=== PATIENT | female | born 1950 | race Caucasian/White ===

== ENCOUNTER → 2019-03-08 | Outpatient (CLI) | payer MEDICARE, OTHER ==
[2019-03-08 16:49] LABS: Basophils % (A) 1 %; Eosinophils # (A) 0.4 k/uL (0-0.7); Eosinophils % (A) 5 %; HCT 44.4 % (34.0-46.0); HGB 14.4 gm/dL (11.4-16.0); Lymphocytes % (A) 30 %; MCH 31.2 pg (25.0-35.0); MCHC 32.6 g/dL (31.0-37.0); MCV 95.9 fL (80.0-100.0); Mean Platelet Volume 8.1; Monocytes # (A) 0.4 k/uL (0-1.0); Monocytes % (A) 6 %; Neutrophils # (A) 3.8 k/uL (1.3-7.7); Neutrophils % (A) 56 %; Platelet Count 268 k/uL (150-450); RBC 4.63 m/uL (3.80-5.40); RDW 14.4 % (11.5-15.5); WBC 6.8 k/uL (3.8-10.6)
== END ==
LOC: LABWHC1 15:43
PROVIDERS: ATTEND Dermatology Procedural Dermatology
DX: L40.0 Psoriasis vulgaris (principal)
CPT/HCPCS: 36415; 82565; 84450; 84460; 85025

== ENCOUNTER → 2019-10-13 | Outpatient (CLI) | payer MEDICARE, OTHER ==
[2019-10-13 11:36] LABS: Basophils % (A) 1 %; Eosinophils # (A) 0.1 k/uL (0-0.7); Eosinophils % (A) 2 %; HCT 45.6 % (34.0-46.0); HGB 15.5 gm/dL (11.4-16.0); Lymphocytes # (A) 2.3 k/uL (1.0-4.8); Lymphocytes % (A) 34 %; MCH 31.3 pg (25.0-35.0); MCV 92.1 fL (80.0-100.0); Mean Platelet Volume 7.3; Monocytes # (A) 0.3 k/uL (0-1.0); Monocytes % (A) 5 %; Neutrophils # (A) 3.8 k/uL (1.3-7.7); Neutrophils % (A) 57 %; Platelet Count 294 k/uL (150-450); RBC 4.95 m/uL (3.80-5.40); RDW 12.4 % (11.5-15.5); WBC 6.7 k/uL (3.8-10.6)
[2019-10-13 18:03] LABS: African American GFR (CKD) 88.4 (60.0-200.0); Non-African American GFR(CKD) 76.3 (60.0-200.0)
== END | disposition home or self-care (01) ==
LOC: LABWHC1 10:55
PROVIDERS: ATTEND Dermatology Procedural Dermatology
DX: L40.0 Psoriasis vulgaris (principal)
CPT/HCPCS: 36415; 82565; 84450; 84460; 85025

== ENCOUNTER → 2021-03-19 | Outpatient (CLI) | payer MEDICARE ==
[2021-03-19 19:33] LABS: Basophils # (A) 0.03 X 10*3/uL (0.00-0.10); Basophils % (A) 0.6 %; Eosinophils # (A) 0.15 X 10*3/uL (0.04-0.35); Eosinophils % (A) 2.9 %; HCT 47.7 % (37.2-46.3); HGB 15.5 g/dL (12.0-15.0); Lymphocytes # (A) 1.73 X 10*3/uL (0.90-5.00); MCH 30.8 pg (27.0-32.0); MCHC 32.5 g/dL (32.0-37.0); MCV 94.8 fL (80.0-97.0); Monocytes # (A) 0.51 X 10*3/uL (0.20-1.00); Monocytes % (A) 9.7 %; Neutrophils # (A) 2.82 X 10*3/uL (1.80-7.70); Neutrophils % (A) 53.6 %; Platelet Count 266 X 10*3/uL (140-440); RBC 5.03 X 10*6/uL (4.10-5.20); RDW 12.3 % (11.5-14.5); WBC 5.25 X 10*3/uL (4.50-10.00)
[2021-03-19 21:54] LABS: African American GFR (CKD) 87.2 (60.0-200.0); Non-African American GFR(CKD) 75.2 (60.0-200.0)
== END | disposition home or self-care (01) ==
LOC: LABWHC1 12:04
PROVIDERS: ATTEND Dermatology MOHS-Micrographic Surgery
DX: L40.0 Psoriasis vulgaris (principal)
CPT/HCPCS: 36415; 82565; 84450; 84460; 84520; 85025; 86480

== ENCOUNTER → 2021-07-06 | Outpatient (CLI) | payer MEDICARE ==
--- NOTE | 2021-07-09 06:23 | PE ---
EXAMINATION TYPE: PET CT fusion skull to thigh DATE OF EXAM: 07/06/2021 COMPARISON: Outside chest CT June 01, 2021 HISTORY: Solitary pulmonary nodule, abnormal CT TECHNIQUE: Following the intravenous administration of 10.25 mCi of F-18 FDG, whole body images are performed from the skull base to the midthigh. Images are reviewed on the computer in the coronal, a xial, and sagittal planes. Reconstructed rotating images are created on independent workstation and reviewed on the computer. A localization and attenuation correction CT is performed in conjunction with the PET scan. Blood glucose level was 108 SCAN: Initial Scan FINDINGS: SKULL BASE AND NECK: Mild symmetric uptake along the lower cervical paraspinal muscles could reflect inflammatory change. No suspicious hypermetabolic uptake. CHEST, MEDIASTINUM, AND HILAR REGION: Background mild to moderate underlying emphysematous changes re demonstrated. Persistent irregular shaped anterior right upper lobe lesion shows increased central fl uid measuring 2.9 x 2.3 cm current study axial image 81 is hypermetabolic, max SUV is 5.61 centrally. Some adjacent pleural thickening near axial image 78 is noted. Superior to this there is slightly mo re prominent 1.3 x 0.8 cm subpleural right upper lobe nodule axial image 71 that is hypermetabolic, m ax SUV is 4.35. Finally there is 1.5 x 1.3 cm hypermetabolic right hilar nodule or lymph node axial i mage 93, max SUV is 4.62. No additional areas of abnormal hypermetabolic uptake. No suspicious hypermetabolic mediastinal lymph nodes noted. ABDOMEN AND PELVIS: No adrenal masses. Normal excretion. Likely poorly distended bladder due to large mass occupying the pelvis extending into the lower to mid abdomen. This has more low dense component in the posterior pelvis. There is suggestion of some incomplete rim calcification inferiorly. Possib le area of abnormal hypermetabolic uptake just superior to pubic symphysis axial image 221 versus poo rly distended bladder or poorly distended bladder is present inferiorly axial image 230. Local mass e ffect noted. Normal uterus identified near axial image 222. No additional areas of abnormal hypermeta bolic uptake clearly identified. OSSEOUS STRUCTURES: No areas of abnormal hypermetabolic uptake. OTHER CT: Moderate to severe calcified plaque right carotid bulb. Moderate to severe three-vessel coronary artery calcification. Prominent pulmonary arteries suggestin g underlying pulmonary artery hypertension. Aneurysmal ascending aorta at 3.9 cm. Some cortical thinning in both kidneys. Metallic artifact from a hip arthroplasty causes streak artif act limiting evaluation of pelvic structures. IMPRESSION: 1. Hypermetabolic uptake in cavitary right upper lung lesion along with more prominent hypermetabolic peripheral right upper lung nodule and right hilar nodule or lymph node. Findings worrisome for neop lasm. Metastatic disease is in the differential. 2. Large pelvic mass with local mass effect presumed ovarian neoplasm, solid hypermetabolic component not excluded. Advise gynecology oncology referral.
== END | disposition home or self-care (01) ==
LOC: RADPETMAIN 09:26
PROVIDERS: ATTEND Internal Medicine
DX: R59.0 Localized enlarged lymph nodes (principal); R19.09 Other intra-abdominal and pelvic swelling, mass and lump; R91.1 Solitary pulmonary nodule
CPT/HCPCS: 78815; A9552

== ENCOUNTER → 2021-07-11 | Outpatient (CLI) | payer MEDICARE ==
[2021-07-11 20:50] LABS: Basophils # (A) 0.04 X 10*3/uL (0.00-0.10); Basophils % (A) 0.5 %; Eosinophils # (A) 0.21 X 10*3/uL (0.04-0.35); Eosinophils % (A) 2.6 %; HCT 48.3 % (37.2-46.3); HGB 15.7 g/dL (12.0-15.0); Lymphocytes # (A) 1.74 X 10*3/uL (0.90-5.00); Lymphocytes % (A) 21.9 %; MCH 30.5 pg (27.0-32.0); MCHC 32.5 g/dL (32.0-37.0); Mean Platelet Volume 12.8 fL (9.5-12.2); Monocytes # (A) 0.61 X 10*3/uL (0.20-1.00); Monocytes % (A) 7.7 %; Neutrophils # (A) 5.32 X 10*3/uL (1.80-7.70); Platelet Count 297 X 10*3/uL (140-440); RBC 5.14 X 10*6/uL (4.10-5.20); RDW 12.7 % (11.5-14.5); WBC 7.94 X 10*3/uL (4.50-10.00)
[2021-07-12 20:28] LABS: African American GFR (CKD) 87.2 (60.0-200.0); Albumin 4.2 g/dL (3.80-4.90); Albumin/Globulin Ratio 1.68 (1.60-3.17); Anion Gap 5.9 mmol/L (4.00-12.00); BUN/Creat Ratio 13.75 Ratio (12.00-20.00); Calcium 9.4 mg/dL (8.7-10.3); Carbon Dioxide 31.1 mmol/L (21.6-31.8); Globulin 2.5 g/dL (1.6-3.3); Non-African American GFR(CKD) 75.2 (60.0-200.0); Potassium 3.9 mmol/L (3.5-5.5); Total Bilirubin 0.9 mg/dL (0.2-1.2); Total Protein 6.7 g/dL (6.2-8.2)
[2021-07-12 21:04] LABS: Cancer Antigen 125 15.6 U/mL (0.0-30.1)
== END | disposition home or self-care (01) ==
LOC: LABWHC1 11:47
PROVIDERS: ATTEND Internal Medicine
DX: C56.9 Malignant neoplasm of unspecified ovary (principal); R19.00 Intra-abdominal and pelvic swelling, mass and lump, unspecified site
CPT/HCPCS: 36415; 80053; 85025; 86304

== ENCOUNTER → 2021-07-27 | Outpatient (CLI) | payer MEDICARE ==
--- NOTE | 2021-07-29 20:33 | CT ---
EXAMINATION TYPE: CT abdomen pelvis w con DATE OF EXAM: 07/27/2021 COMPARISON: PETCT 07/06/[address] chest 06/01/2021 HISTORY: 70-year-old female R19.09, Abdominal/pelvic mass. TECHNIQUE: Contiguous axial scanning of the abdomen and pelvis following administration of 100 ml Iso odalys 300 IV contrast. Delayed images through the kidneys and coronal/sagittal reconstructions perform ed. CT DLP: 860.30 mGycm Automated exposure control for dose reduction was used. FINDINGS: Heart normal size without pericardial effusion. Scattered coronary artery calcifications are present. Visualized lung bases are clear without pleural effusion. Tiny calcified granuloma right hepatic dome. Otherwise, no focal liver lesion or biliary ductal dilat ation. Portal venous system is patent. Gallbladder, right adrenal gland, kidneys, spleen, and pancreas within normal limits. 1.3 cm nodularity of the left adrenal gland remains unchanged, probable benign adrenal adenoma. Moderate atherosclerotic calcifications infrarenal abdominal aorta and iliac arteries with segmental moderate atherosclerotic narrowing within the bilateral common iliac arteries. Retroaortic left renal vein. No dilated small bowel or free air. No mesenteric or retroperitoneal lymphadenopathy. Mild stool burden. Uterus anteverted. There is neris pelvic floor relaxation with elongation of the inferior aspect of t he bladder. The body of the bladder is flattened anteriorly secondary to a large complex cystic mass probably of ovarian origin measuring up to 23.5 cm AP by 16.5 cm wide by 13.3 cm craniocaudal (sagitt al image 59 and axial image 51). At least one and probably more internal septations are present. There is mild adjacent free fluid along the left lateral margin, unchanged from the PET/CT of 07/06/20 21, axial image 56. On the lateral view, we note the uterine fundus to be rounded, superior to the flank segment. We susp ect that this corresponds to the area of increased hypermetabolism on the patient's PET/CT rather nneka n a solid metabolic component. Refer to sagittal image 53. No pelvic lymphadenopathy is clearly ident ified. Bones: Right hip total arthroplasty. Moderate to advanced degenerative disc disease mid to lower lumb ar spine with hypertrophic facet arthropathy. IMPRESSION: 1. REDEMONSTRATED LARGE CYSTIC MASS OF THE PELVIS MEASURING UP TO 23.5 X 16.5 X 13.3 CM CONTAINS AT L EAST ONE AND POSSIBLY MORE INTERNAL SEPTATIONS. FINDINGS LIKELY OF OVARIAN ORIGIN, PROBABLY SEROUS CY STADENOMA. SURGICAL EVALUATION IS RECOMMENDED. SOME MILD FLUID ADJACENT TO THE LEFT LATERAL MARGIN IS UNCHANGED FROM 07/06/2021. 2. THE SOLID METABOLIC COMPONENT QUESTIONED ON THE PATIENT'S PET/CT IS HIGHLY SUSPECTED TO CORRESPOND TO EXCRETED FDG THAT WAS TRAPPED IN THE FUNDUS OF THE BLADDER (RATHER THAN SUSPICIOUS SOLID METABOLI C TISSUE). THE BODY OF THE BLADDER IS FLATTENED FROM EXTRINSIC MASS EFFECT. THERE IS INFERIOR FUNNELI NG OF THE BASE OF THE BLADDER DUE TO PELVIC FLOOR RELAXATION. 3. STABLE 1.3 CM LEFT ADRENAL NODULE, LIKELY ADRENAL ADENOMA.
== END | disposition home or self-care (01) ==
LOC: RADCTMAIN 17:14
PROVIDERS: ATTEND Internal Medicine
DX: N94.89 Other specified conditions associated with female genital organs and menstrual cycle (principal)
CPT/HCPCS: 82565; 84520; 74177; 36415; Q9967

== ENCOUNTER 2021-09-20 10:37 | Day surgery (SDC) | payer MEDICARE ==
[2021-09-18 15:27] VITALS: BMI 28.3
[~2021-09-20 10:37] MED LIST: ALBUTEROL NEB (CONC) 2.5 MG/0.5 ML INHALATION ONE; LACTATED RINGERS 1,000 ML IV SCH; LIDOCAINE 1% (10MG/ML) FOR IV START INTRADERMA PRN; LIDOCAINE 2% (PF) 20 MG/ML 5 ML VIAL INHALATION ONE; LIDOCAINE VISCOUS 300 MG/15 ML CUP MUCOUS MEM ONE; SODIUM CHLORIDE 0.9% 1,000 ML IV SCH
--- NOTE | 2021-09-20 12:35 | CT ---
EXAMINATION TYPE: CT Chest janki Phan Protocol DATE OF EXAM: 09/20/2021 COMPARISON: 07/06/2021 HISTORY: Navigational brochoscopy CT DLP: 525 mGycm Automated exposure control for dose reduction was used. FINDINGS: Background mild to moderate underlying emphysematous changes redemonstrated. Persistent irregular sha ped anterior right upper lobe lesion shows increased central fluid measuring 2.9 x 2.3 cm current sta ble from prior exam. Pleural thickening stable.. Superior to this there is slightly more prominent 1.3 x 0.8 cm subpleural right upper lobe nodule is stable. Adenopathy previously described also again noted and appears more prominent in the right hilum measuring a short axis of 2.5 cm on today's exam. Multinodular thyroid changes noted..\ There is a healing anterior right-sided rib fracture. Tiny pericardial effusion with cardiomegaly and coronary artery calcification. Ascending aorta measur es a maximal dimension of 3.6 cm with atherosclerotic changes. Calcifications in the region of the pa ncreas appear vascular. Adrenal glands normal morphology. IMPRESSION: PRENAVIGATIONAL BRONCHOSCOPY IMAGING DEMONSTRATES PERSISTENT SUSPICIOUS APPEARING MASSES. FINDINGS PALMA SPICIOUS FOR MALIGNANCY.
[2021-09-20] MEDS ORDERED: LIDOCAINE 1% INJ 10MG/ML (20 ML MDV) ONE (13:24)
[2021-09-20] MEDS ORDERED: ePHEDrine 50 MG/ML 1 ML AMP ONE (13:24)
[2021-09-20] MEDS ORDERED: ROCURONIUM 10 MG/ML (5 ML VIAL) IV ONE (13:24)
[2021-09-20] MEDS ORDERED: MIDAZOLAM 2 MG/2 ML VIAL ONE (13:24)
[2021-09-20] MEDS ORDERED: NEOSTIGMINE 1 MG/ML 10 ML VIAL ONE (13:24)
[2021-09-20] MEDS ORDERED: GLYCOPYRROLATE 0.2 MG/ML 2 ML VIAL ONE (13:24)
[2021-09-20] MEDS ORDERED: fentaNYL (PF) 50 MCG/ML 2 ML AMP ONE (13:24)
[2021-09-20] MEDS ORDERED: SUCCINYLCHOLINE CHLORIDE 100 MG/5 ML SYR IV ONE (13:24)
[2021-09-20] MEDS ORDERED: PROPOFOL 10 MG/ML 20 ML VIAL IV ONE (13:24)
[2021-09-20] MEDS ORDERED: SODIUM CHLORIDE 0.9% 500 ML 500 ML IV ONE (14:20)
--- NOTE | 2021-09-20 14:29 | P.PCN ---
Date of Procedure: 09/20/21 Preoperative Diagnosis: - RUL mass - Mediastinal lymphadenopathy, right hilar Postoperative Diagnosis: - RUL mass - Mediastinal lymphadenopathy, right hilar Procedure(s) Performed: 1 flexible bronchoscopy 2 Navigational bronchoscopy 3 transbronchial biopsy of right upper lobe mass, with navigational guidance 4 EBUS evaluation of the mediastinal lymph nodes 5 transbronchial needle aspirate of right hilar, patient 11RS lymph node, under EBUS guidance Anesthesia: DANIELA Surgeon: Vanessa Rodgers Estimated Blood Loss (ml): 0 Pathology: other Condition: stable Disposition: same day Operative Findings: This is a navigational bronchoscopy along with endobronchial ultrasound of the right hilar mass and mediastinal lymph node. The procedure was done in the endoscopy suite. The patient underwent a CAT scan of the chest using the [facility] protocol. The CT images were reviewed. The right upper lobe mass was identified. Right hilar lymph node was also identified. Appropriate mapping of the mass was done and following that the images uploaded into the [employer] navigational tower. The patient was brought in to the endoscopy suite and the patient was intubated the usual fashion by #8 orotracheal tube. Intubation process was done by anesth esia the bedside. After adequate sedation, the flexible bronchoscope was introduced through the orotracheal tube and an airway inspection was done. Visualized airways included the distal trachea, bilateral mainstem bronchi, right upper lobe bronchus regular lobe right lower lobe bronchus along with the radius segments on the right addition to left mainstem bronchus, left upper lobe bronchus and left lower lobe bronchus along with various segments on the left. On the bronchial tumors or lesions identified. There was some looseness for secretions that were suctioned out. Following that, the appropriate calibration was done using the main zayda and the secondary zayda on the left as a reference points. On the navigational guidance, the bronchoscope was moved to the right upper lobe and transbronchial biopsy of the right upper lobe mass was done and multiple passes was obtained. No bleeding was encountered samples were collected without any major difficulties or complications. Following that, the flexible bronchoscope was removed and the EBUS was introduced. The mediastinal lymph nodes were evaluated. The patient was found to have a 11 millimeters subcarinal lymph nodes, station 7, no lymph nodes were identified at station 4R and 10 hour. At the level of station 11 RS, a large lymph node was identified measuring 20 x 17 mm in size. Based on that, using EBUS guidance, transbronchial needle aspirate of the 11 R lymph node was done using a 22-gauge histology needle. A total of 5 passes were taken and the samples were saved for pathologic evaluation. Following that, the EBUS was removed and the flexible bronchoscope was introduced and therapeutic it was suctioning was done. No evidence of any bleeding. The bronchoscope was removed and the patient was transferred recovery in stable condition. No bedside complications or bleeding at a pressure underwent a successful procedure. Chest x-rays to follow. If all stable, the patient will be discharged home today.
[2021-09-20 14:36] VITALS: TEMP 97
--- NOTE | 2021-09-20 15:01 | XR ---
EXAMINATION TYPE: XR chest 1V DATE OF EXAM: 09/20/2021 COMPARISON: None INDICATION: Post procedure TECHNIQUE: Single frontal view of the chest is obtained. FINDINGS: The heart size is normal. The pulmonary vasculature is normal. There is an irregular right upper lobe infiltrate or density. No pneumothorax is evident. IMPRESSION: 1. No pneumothorax post bronchoscopy
[2021-09-20 15:05] VITALS: RESP 18
[2021-09-20 15:36] VITALS: BP 167/72; PULSE 77
== END 2021-09-20 15:46 | disposition home or self-care (01) ==
LOC: ORWHC2ENDO 10:37
PROVIDERS: ATTEND Internal Medicine Critical Care Medicine
DX: R91.8 Other nonspecific abnormal finding of lung field (principal); R59.0 Localized enlarged lymph nodes
CPT/HCPCS: 31627; 31645; 31654; 71045; 71250; 31628; 31629; 31652; J2250; J2710; J2001; J3010; J0330; J2704

== ENCOUNTER → 2021-10-10 | Outpatient (CLI) | payer MEDICARE ==
--- NOTE | 2021-10-11 04:39 | MR ---
EXAMINATION TYPE: MR brain wo/w con DATE OF EXAM: 10/10/2021 COMPARISON: None HISTORY: Lung Cancer, Suspected Mets CONTRAST: Standard multiplanar, multisequence MRI departmental protocol images were obtained without contrast a nd with 7 mL intravenous Gadavist gadolinium contrast. There is cerebral cortical atrophy. There is no mass effect. There is a 3 cm area of fluid signal in the left sylvian fissure that could relate to an old infarct with encephalomalacia. There is no mass effect. There is no midline shift. The contrast images show no pathologic enhancement. There is mahesh l enhancement of the venous sinuses. There are no ring-enhancing lesions. On the T2 and FLAIR images there is increased signal in the brain parenchyma adjacent to the left tem poral lobe lesion and consistent with infarct. There are fluid levels in the maxillary sinuses. There is no evidence of orbital mass. Corpus callosum is intact. The brainstem is intact. There is no evid ence of posterior fossa mass. 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 Th is is probably not changed compared to the PET CT scan of 07/06/2021. There are scattered small white matter high signal foci without enhancement consistent with some instructor weaving ming small vessel ischemia.
== END | disposition home or self-care (01) ==
LOC: RADMRIMAIN 09:46
PROVIDERS: ATTEND Internal Medicine Hematology & Oncology
DX: C34.11 Malignant neoplasm of upper lobe, right bronchus or lung (principal); G93.89 Other specified disorders of brain
CPT/HCPCS: 70553; A9585

== ENCOUNTER → 2022-02-11 | Outpatient (CLI) | payer MEDICARE ==
--- NOTE | 2022-02-11 12:59 | CT ---
EXAMINATION TYPE: CT ChestAbdPelvis w con DATE OF EXAM: 02/11/2022 COMPARISON: Prior PET/CT July 06, 2021 HISTORY: Right-sided Lung cancer status post chemotherapy and radiation treatment. CT DLP: 1409.3 mGycm. Automated Exposure Control for Dose Reduction was Utilized. CONTRAST: CT scan of the thorax, abdomen and pelvis is performed with IV Contrast, patient injected with 100ml mL of Isovue 300. FINDINGS: LUNGS: Bilateral mild to moderate underlying emphysematous change is redemonstrated. Marked improveme nt in the anterior partial cavitated right upper to mid lung spiculated nodule now measuring 1.5 x 1. 2 cm axial image 22 versus 2.9 x 2.3 cm. The superior peripheral 1.3 x 0.8 cm hypermetabolic nodule n ow shows elongated pleural thickening axial image 14. The right infrahilar lobe dense nodule with mil d hypermetabolic uptake is fairly stable measuring 1.2 cm axial image 30 versus prior. No new nodules bilaterally. No pleural effusion or pneumothorax seen. MEDIASTINUM: There are no new greater than 1 cm hilar or mediastinal lymph nodes. No cardiomegaly o r pericardial effusion is seen. Fairly severe coronary artery calcification redemonstrated. Stable e ctatic ascending aorta up to 3.7 cm. LIVER/GB: No significant abnormality is appreciated. PANCREAS: No significant abnormality is seen. SPLEEN: No significant abnormality is seen. ADRENALS: Stable ametabolic 8mm low dense left adrenal nodule axial image 59. KIDNEYS: Symmetric cortical uptake and excretion without hydronephrosis seen bilaterally. BOWEL: No significant abnormality is seen. GENITAL ORGANS: Persistent large hyperdense lesion in the lower abdomen measuring approximately 18 x 17 cm axial image 90 with local mass effect. Just below this in the pelvis there is a round well-defi trung slightly more hypodense approximately 9.0 x 8.0 cm mass axial image 101 redemonstrated. Significa nt local mass effect on bladder which is poorly distended anteriorly axial image 107 with additional hypodense lesion left pelvis possibly having some peripheral calcification. Difficult to visualize no rmal uterus or ovaries. LYMPH NODES: No greater than 1cm abdominal or pelvic lymph nodes are appreciated. OSSEOUS STRUCTURES: Moderate disc space narrowing with vacuum disc phenomenon at L3-L4 level. Mild to moderate disc space narrowing L4-L5 level with facet arthropathy. Metallic hardware from right hip a rthroplasty causes streak artifact. OTHER: No significant additional abnormality is seen. IMPRESSION: 1. Positive partial treatment response to right-sided lung cancer as detailed above. 2. Persistent large lower abdominal and pelvic masses presumed related to ovarian neoplasm or neoplas ms. Advise gynecology oncology evaluation if has not been performed. Significant local mass effect re demonstrated.
== END | disposition home or self-care (01) ==
LOC: RADCTMAIN 10:13
PROVIDERS: ATTEND Internal Medicine Hematology & Oncology
DX: C34.11 Malignant neoplasm of upper lobe, right bronchus or lung (principal); Z03.89 Encounter for observation for other suspected diseases and conditions ruled out
CPT/HCPCS: 82565; 84520; 71260; 74177; 36415; Q9967

== ENCOUNTER → 2022-05-20 | Outpatient (CLI) | payer MEDICARE ==
[2022-05-20 18:45] LABS: Basophils # (A) 0.02 X 10*3/uL (0.00-0.10); Basophils % (A) 0.4 %; Eosinophils # (A) 0.14 X 10*3/uL (0.04-0.35); Eosinophils % (A) 2.8 %; HCT 39.1 % (37.2-46.3); HGB 12.8 g/dL (12.0-15.0); Immature Grans, Automated 0.4 %; Lymphocytes # (A) 1.39 X 10*3/uL (0.90-5.00); Lymphocytes % (A) 28.2 %; MCH 30.8 pg (27.0-32.0); MCHC 32.7 g/dL (32.0-37.0); MCV 94.2 fL (80.0-97.0); Mean Platelet Volume 12.3 fL (9.5-12.2); Monocytes # (A) 0.51 X 10*3/uL (0.20-1.00); Monocytes % (A) 10.3 %; NRBC Per 100 WBC 0 /100 WBCS (0.0-0.0); Neutrophils # (A) 2.85 X 10*3/uL (1.80-7.70); Neutrophils % (A) 57.9 %; Platelet Count 251 X 10*3/uL (140-440); RBC 4.15 X 10*6/uL (4.10-5.20); RDW 12.6 % (11.5-14.5); WBC 4.93 X 10*3/uL (4.50-10.00)
[2022-05-20 19:05] LABS: African American GFR (CKD) 65.3 (60.0-200.0); Non-African American GFR(CKD) 56.4 (60.0-200.0)
== END | disposition home or self-care (01) ==
LOC: LABWHC1 13:55
PROVIDERS: ATTEND Student in an Organized Health Care Education/Training Program
DX: L40.0 Psoriasis vulgaris (principal)
CPT/HCPCS: 36415; 82565; 84450; 84460; 85025; 86480

== ENCOUNTER → 2022-06-17 | Outpatient (CLI) | payer MEDICARE ==
--- NOTE | 2022-06-17 18:22 | CT ---
EXAMINATION TYPE: CT ChestAbdPelvis w con CT DLP: 1303.7 mGycm, Automated exposure control for dose reduction was used. DATE OF EXAM: 06/17/2022 1:51 PM COMPARISON: CT chest abdomen pelvis 02/11/2022. CLINICAL INDICATION:Female, 71 years old with history of C34.11 lung ca; abdominal distention Technique: Multiple axial images of the chest, abdomen, and pelvis were obtained following the intrav enous administration of 70 mL Isovue-300. Oral contrast was administered. Two-dimensional coronal and sagittal reconstructions were obtained. Findings: CHEST: LUNGS/ PLEURA: Mild to moderate centrilobular emphysematous changes redemonstrated. Improvement in ri ght upper to midlung spiculated nodule with bronchiectasis. This grossly measures 1.2 x 1.0 cm (serie s 4, image 22), previously 1.5 x 1.2 cm. Right upper lobe pleural parenchymal scarring noted. Margina l decrease in size of right infrahilar 1.4 cm dense nodule (series 4, image 30). Previously 1.5 cm. N o new or enlarging pulmonary nodules. AIRWAY: Patent and unremarkable.. HEART: Size within normal limits. Trace pericardial fluid. Coronary artery calcifications.. MEDIASTINUM: No gross evidence of adenopathy. VASCULATURE: No aortic aneurysm. Atherosclerotic calcification of the aorta and its branches. MUSCULOSKELETAL: No acute osseous abnormalities. No suspicious osseous lesions. SOFT TISSUES/LYMPH NODES: Unremarkable. LOWER NECK: Stable subcentimeter right thyroid lobe hypodense nodule. ABDOMEN: ABDOMEN LIVER: Unremarkable GALLBLADDER AND BILE DUCTS: Unremarkable. PANCREAS: Unremarkable. SPLEEN: Unremarkable. ADRENAL GLANDS: Right adrenal gland is unremarkable. Stable 8 mm medial limb of the left adrenal glan d hypodense nodule. KIDNEYS AND URETERS: No evidence of hydronephrosis or renal calculus. Kidneys enhance symmetrically. PELVIS BLADDER: Under distended. REPRODUCTIVE: Persistent large hyperdense lesion in the lower abdomen measuring 18.9 x 17.2 cm with s urrounding local mass effect. There is a round well-defined slightly more hypodense mass measuring 9. 3 x 8.9 cm posteriorly with suggested peripheral calcifications. The uterus and ovaries are poorly ev aluated due to the mass and surrounding streak artifact from hip prosthesis. ABDOMEN & PELVIS STOMACH AND BOWEL: Small hiatal hernia, duodenum is unremarkable. No focal wall thickening. No eviden ce of bowel obstruction. PERITONEUM: No evidence of pneumoperitoneum or free fluid. VASCULATURE: Moderate atherosclerotic calcifications are present throughout the abdominal aorta and i ts branches. MUSCULOSKELETAL: No acute osseous abnormalities. No suspicious osseous lesions. Multilevel degenerati ve changes of the lumbar spine. Postsurgical changes from right total hip arthroplasty. LYMPH NODES: No gross evidence for lymphadenopathy. SOFT TISSUE/ABDOMINAL WALL: Unremarkable IMPRESSION: 1. Positive partial treatment response to right-sided lung cancer as described above. 2. Persistent large lower abdominal/pelvic masses presumably related to ovarian neoplasm/neoplasms. T here is significant mass effect upon the surrounding structures. Gynecology oncology evaluation is ag ain recommended if not already performed.
== END | disposition home or self-care (01) ==
LOC: RADCTMAIN 11:56
PROVIDERS: ATTEND Internal Medicine Hematology & Oncology
DX: Z03.89 Encounter for observation for other suspected diseases and conditions ruled out (principal); C34.11 Malignant neoplasm of upper lobe, right bronchus or lung
CPT/HCPCS: 82565; 84520; 71260; 74177; 36415; Q9967 ×2

== ENCOUNTER → 2023-04-28 | Outpatient (CLI) | payer MEDICARE ==
[2023-04-28 12:23] LABS: African American GFR (CKD) 65 (>60 ml/min/1.73 sqM); Blood Urea Nitrogen 20 mg/dL (7-17); Non-African American GFR(CKD) 56 (>60 ml/min/1.73 sqM)
--- NOTE | 2023-04-28 13:58 | CT ---
EXAMINATION TYPE: CT ChestAbdPelvis w con DATE OF EXAM: 04/28/2023 COMPARISON: 12/23/2022 HISTORY: f/u lung ca CT DLP: 1508.7 mGycm CONTRAST: CT scan of the chest, abdomen and pelvis is performed with Oral Contrast and with IV Contrast, patien t injected with 80cc mL of Isovue 300. CT Chest: LUNGS: Consolidative-like changes extending from the right hilum to the right upper lobe with pleural extension. This likely reflects post treatment change. No discernible mass however. The lungs are ot herwise clear. No evidence for pleural effusion or new consolidation. MEDIASTINUM: Thoracic aorta is of normal caliber. The heart is mildly enlarged. Coronary stations a re noted. No evidence for mediastinal mass or adenopathy. HILAR STRUCTURES: No evidence for mass. Right hilar lymph node is again noted measuring 1.2 cm. OTHER : No significant abnormality. CONTRAST CT ABDOMEN AND PELVIS FINDINGS: LIVER/GB: No calcified gallstones. No space occupying hepatic lesion. Biliary tree is of normal ca liber. PANCREAS: No inflammation. No distinct mass. SPLEEN: No splenic enlargement. No lesion seen. ADRENALS: No nodule. No thickening. KIDNEYS/BLADDER: No hydronephrosis. No nephrolithiasis. No distinct renal mass. BOWEL: Normal appendix. Normal bowel caliber. No inflammation. GENITAL ORGANS: Again noted is hyperdense mass lower abdomen which measures approximately 19.3 x 16.8 cm versus 19.3 x 16.3 cm there is an adjacent hypodense mass also of similar size. Peripheral calcif ication suggested. Uterus and ovaries again are poorly characterize given the aforementioned masses. LYMPH NODES: No greater than 1cm abdominal or pelvic lymph nodes are appreciated. AORTA: No significant abnormality. OSSEOUS STRUCTURES: Right hip prosthesis with streak artifact which limits portions of the examinatio n. OTHER: No significant additional abnormality is seen. IMPRESSION: 1. Consolidative-like changes extending from the right hilum to the right upper lobe with pleural ext ension. This likely reflects post treatment change. No discernible mass however. 2. Persistent abdominal masses arising from the pelvic region likely of ovarian origin. Ovarian neopl asm not excluded. Mass effect upon the adjacent structures redemonstrated.
== END | disposition home or self-care (01) ==
LOC: RADCTMAIN 11:46
PROVIDERS: ATTEND Internal Medicine Hematology & Oncology
DX: C34.11 Malignant neoplasm of upper lobe, right bronchus or lung (principal); R19.09 Other intra-abdominal and pelvic swelling, mass and lump
CPT/HCPCS: 82565; 84520; 71260; 74177; 36415; Q9967

== ENCOUNTER → 2024-03-19 | Outpatient (CLI) | payer MEDICARE ==
[2024-03-19 14:30] LABS: African American GFR (CKD) 63 (>60 ml/min/1.73 sqM); Blood Urea Nitrogen 14 mg/dL (7-17); Non-African American GFR(CKD) 55 (>60 ml/min/1.73 sqM)
--- NOTE | 2024-03-21 16:38 | CT ---
EXAMINATION TYPE: CT ChestAbdPelvis w con CT DLP: 1573 mGycm, Automated exposure control for dose reduction was used. DATE OF EXAM: 03/19/2024 5:28 PM COMPARISON: 04/28/2023 , 12/23/2022, 06/17/2022. CLINICAL INDICATION:Female, 73 years old with history of C34.11 MALIGNANT NEOPLASM OF UPPER LOBE, RIG HT BRO; PH[facility], Follow up for lung CA and ovarian tumor. Abdominal swelling. Technique: CT ChestAbdPelvis w con; Multiple axial images were obtained. Two-dimensional coronal and sagittal reconstructions were obtained. Contrast used:80 mL of Isovue 300 with IV Contrast, Oral contrast used: with Oral Contrast Findings: CHEST: LUNGS/ PLEURA: Mild to moderate centrilobular emphysema. There is interval increase in consolidation on the right hilar region which extends towards the later al pleura. This is slowly increased in consolidation in the [employer] 06/17/2022. Increased consolidatio n like changes in the right which appears to extend from the pulmonary hilum towards the periphery ad justing atelectasis. Left lower lobe superior segment nodule measuring 4 mm series 3 image 23 AIRWAY: Patent and unremarkable.. HEART: Size within normal limits. Coronary artery calcifications. Aortic valve leaflet calcifications . MEDIASTINUM: No gross evidence of adenopathy. VASCULATURE: No aortic aneurysm. Atherosclerotic calcification of the aorta and its branches. MUSCULOSKELETAL: No acute osseous abnormalities. No suspicious osseous lesions. SOFT TISSUES/LYMPH NODES: Unremarkable. LOWER NECK: Stable subcentimeter right thyroid lobe hypodense nodule. ABDOMEN: ABDOMEN LIVER: Unremarkable GALLBLADDER AND BILE DUCTS: Unremarkable. PANCREAS: Unremarkable. SPLEEN: Unremarkable. ADRENAL GLANDS: Right adrenal gland is unremarkable. Stable 8 mm medial limb of the left adrenal glan d hypodense nodule. KIDNEYS AND URETERS: No evidence of hydronephrosis or renal calculus. Kidneys enhance symmetrically. PELVIS BLADDER: Under distended. REPRODUCTIVE: Right hip arthroplasty limits evaluation of the inferior aspect of a large hyperdense lesion in the lower abdomen measuring 21 x 19.0 cm, previously 18.3 x 16.9 cm with more complex area seen inferiorly. There is a round well-defined slightly more hypodense mass measuring 8.6 x 8.4 cm c m posteriorly with possible posterior calcification along the periphery. The uterus and ovaries are p oorly evaluated due to the mass and surrounding streak artifact from hip prosthesis. ABDOMEN & PELVIS STOMACH AND BOWEL: Small hiatal hernia, duodenum is unremarkable. No focal wall thickening. No eviden ce of bowel obstruction. PERITONEUM: No evidence of pneumoperitoneum or free fluid. VASCULATURE: Moderate atherosclerotic calcifications are present throughout the abdominal aorta and i ts branches. MUSCULOSKELETAL: No acute osseous abnormalities. No suspicious osseous lesions. Multilevel degenerati ve changes of the lumbar spine. Postsurgical changes from right total hip arthroplasty. LYMPH NODES: No gross evidence for lymphadenopathy. SOFT TISSUE/ABDOMINAL WALL: Unremarkable IMPRESSION: 1. Interval increase in consolidation on the right hilar region which extends towards the lateral ple ura. This is slowly increased in consolidation when going back to multiple priors. Findings findings favor atelectasis however underlying tumor remains in the differential. Consider PET/CT for evaluatio n for metabolic activity. 2. 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 Th ere is significant mass effect upon the surrounding structures. No lymphadenopathy within the abdome n or pelvis visualized. 3. Left lower lobe superior segment 4 mm pulmonary nodule attention on follow-up imaging as this is n ew from prior on 04/28/2023.
== END | disposition home or self-care (01) ==
LOC: RADCTMAIN 13:44
PROVIDERS: ATTEND Radiology Radiation Oncology
DX: R19.00 Intra-abdominal and pelvic swelling, mass and lump, unspecified site (principal); R91.8 Other nonspecific abnormal finding of lung field; R91.1 Solitary pulmonary nodule; C77.1 Secondary and unspecified malignant neoplasm of intrathoracic lymph nodes; C34.11 Malignant neoplasm of upper lobe, right bronchus or lung; Z92.3 Personal history of irradiation
CPT/HCPCS: 82565; 84520; 71260; 74177; 36415; Q9967

== ENCOUNTER → 2024-06-09 | Outpatient (CLI) | payer MEDICARE | END | disposition home or self-care (01) | LOC: LABWHC1 11:08 | PROVIDERS: ATTEND Student in an Organized Health Care Education/Training Program | DX: L40.0 Psoriasis vulgaris (principal); Z79.899 Other long term (current) drug therapy | CPT/HCPCS: 36415; 86480 ==